=== PATIENT | female | born 1945 | race Caucasian/White ===

== ENCOUNTER → 2017-07-27 | Outpatient (CLI) | payer OTHER ==
[~2017-07-27] MED LIST: ASPIR 8181 MG PO; CALCIUM 600 +1 EAC1 PO; FISH OIL 1,001000 M2 PO; GLUCOSAMINE CH1 EA10 PO; MAXZIDE-25 MG1 EACH PO; NORCO 5-325 TA1 EACH PO; PERCOCET PO; TYLENOL EXTRA500 MG PO; UNICOMPLEX M TA1 TA1 PO; XARELTO10 MG PO; ZOCOR20 MG PO
== END ==
LOC: M.MRI 10:55
DX: S83.281A Other tear of lateral meniscus, current injury, right knee, initial encounter (principal); S83.241A Other tear of medial meniscus, current injury, right knee, initial encounter; M17.11 Unilateral primary osteoarthritis, right knee; M25.461 Effusion, right knee; M22.41 Chondromalacia patellae, right knee; Z96.651 Presence of right artificial knee joint; X58.XXXA Exposure to other specified factors, initial encounter; Y93.89 Activity, other specified; Y92.89 Other specified places as the place of occurrence of the external cause; Y99.8 Other external cause status

== ENCOUNTER 2017-08-17 06:15 | Inpatient (IN) | payer OTHER ==
[2017-08-05 09:02] LABS: HEMATOCRIT 35.1 % (37.0-47.0); HEMOGLOBIN 11.6 gm/dL (12.0-15.0); MCH 27.1 pg (26.0-34.0); MCHC 33.2 g/dL (28.0-37.0); MCV 81.8 fL (80.0-100.0); MPV 7.8 fl. (7.2-11.1); RBC 4.29 mil/uL (4.20-5.00); RDW-CV 16.8 % (10.5-14.5); WBC 6.3 thou/uL (4.0-11.0)
[2017-08-05 09:26] LABS: URINE BILIRUBIN NEGATIVE (Negative); URINE BLOOD NEGATIVE (Negative); URINE CLARITY CLEAR; URINE COLOR YELLOW; URINE GLUCOSE-RANDOM NEGATIVE (Negative); URINE KETONES NEGATIVE (Negative); URINE LEUKOCYTES-REFLEX NEGATIVE (Negative); URINE NITRITE-REFLEX NEGATIVE (Negative); URINE PROTEIN NEGATIVE (Negative); URINE SPECIFIC GRAVITY <= 1.005 (1.005-1.030); URINE UROBILINOGEN 0.2 E.U./dl (0.2-1.0)
[2017-08-05 09:36] LABS: ALBUMIN 3.8 g/dL (3.4-5.0); CALCIUM 9.4 mg/dL (8.5-10.1); CREATININE 0.9 mg/dL (0.6-1.3); POTASSIUM 3.8 mmol/L (3.5-5.1); TOTAL BILIRUBIN 0.4 mg/dL (<0.1-1.0)
[2017-08-05 09:37] LABS: PROTIME 9.8 Seconds (9.20-11.50)
--- NOTE | 2017-08-05 17:17 | EKG ---
[place] [address] ELECTROCARDIOGRAM REPORT Name: IGGY TALLEY Room: PRE IN [facility]#: [id number] Admission: Attend Phys: Skip Rosario Discharge: Date of : 49 Report #: [id number] THIS REPORT FOR: //name// [facility] Test Date: 2017-08-05 Test Time: 09:08:50 Pat Name: IGGY TALLEY Department: Room: Gender: [place] Wellness Coordinator: : 1945 Requested By: Uvaldo Villalta Order Number: [id number] Reading MD: Juan Diego Whitaker Measurements Intervals Jones Rate: 71 P: 45 ID: [id number] QRS: -6 QRSD: 85 T: 50 QT: 401 QTc: 436 Interpretive Statements Sinus rhythm No previous ECG available for comparison Electronically Signed On 08-05-2017 17:17:32 TOLL LINE INSPECTOR by Juan Diego Whitaker [email or web address] <ELECTRONICALLY SIGNED> By: Juan Diego Whitaker MD, [facility] 08/05/17 1717 0908 [id number] Juan Diego Whitaker MD, FACC /EPI
[~2017-08-17] VITALS: Ht 167.6 cm; Wt 76.2 kg
[~2017-08-17 06:15] MED LIST changes: -NORCO 5-325 TA1 EACH PO; -PERCOCET PO; -XARELTO10 MG PO
[2017-08-17 08:45] VITALS: BP 124/70
--- NOTE | 2017-08-17 12:59 | NUR ---
RECIEVED O.T. EVAL AND TX ORDERS. WILL DEFER TO P.T. AND NURSING. PLEASE ORDER FURTHER O.T. SERVICES IF NEEDED.
[2017-08-17 13:00] VITALS: BP 129/58
--- NOTE | 2017-08-17 14:56 | NUR ---
PATIENT CAME TO THE FLOOR FROM THE OR IN STABLE CONDITION. VITAL SIGNS STABLE ON 2 LITERS OF OXYGEN THROUGH NASAL CANNULA, CONTINOUS PULSE OXIMETER IN PLACE, PATIENT'S OXYGEN LEVEL IN 100%. ADMISSION EDUCATION DONE AND QUESTIONS ANSWERED FOR PATIENT AND FAMILY. CALL LIGHT IS IN REACH, PATIENT IS SLEEPING NOW.
[2017-08-17 16:00] VITALS: BP 112/61
--- NOTE | 2017-08-17 17:33 | NUR ---
PATIENT HAS BEEN ALERT AND ORIENTED SINCE ARRIVING FROM THE OR HAVING RIGHT KNEE REPLACEMENT. SOME COMPLAINTS OF PAIN THAT IS SOMEWHAT CONTROLLED WITH IV PAIN MEDICATIONS. VITAL SIGNS STABLE ON 3 LITERS OF OXYGEN THROUGH NASAL CANNULA WITH CONTINOS PULSE OXIMETER. CALL LIGHT IS IN REACH, WILL CONTINUE TO MONITOR.
[2017-08-17 20:00] VITALS: BP 129/80
[2017-08-18] VITALS (9 sets, daily range): BP systolic 122–140; BP diastolic 54–80
[2017-08-18 04:20] LABS: HEMATOCRIT 30.3 % (37.0-47.0); HEMOGLOBIN 10.1 gm/dL (12.0-15.0)
--- NOTE | 2017-08-18 05:16 | NUR ---
ASSUMED CARE OF PT AT 1900 PT ALERT AND ORIENTED X4 VS AND ASSESSMENT STABLE POSITIVE CMS CHECKS TO RLE. PT HAD PAIN MEDS TWICE THEN SLEPT THROUGH THE NIGHT.
--- NOTE | 2017-08-18 15:08 | NUR ---
SPOKE WITH PT.EARLIER. AT BEDSIDE. HE WILL BE WITH HER 11/01 AT HOME. SHE HAS A WALKER AT BEDSIDE FROM HOME. SHE IS NORMALLY INDEPENDENT AT HOME. CM CALLED PRESCRIPTION FOR XARELTO WRITTEN TO [facility]. COPAY IS $18. WILL INFORM PT. DISCUSSED HH AGENCIES. SHE CHOSE [facility] SHE HAD USED THEM BEFORE. WILL MAKE REFERRAL TO [facility].
--- NOTE | 2017-08-18 17:26 | NUR ---
ASSUMED CARE O FPATIENT AFTER MORNING REPORT. ALERT AND ORIENTED X4. ASSESSMENT COMPLETED AND CHARTED. VSS ON ROOM AIR. PATIENT HAS HAD NO COMPLAINTS OF NAUSEA THIS SHIFT. PAIN HAS BEEN MINIMAL AND MANAGED WITH MEDICATION. PATIENT HAS WORKED WELL WITH THERAPY TODAY AND MAY DISCHARGE TOMORROW. HOURLY ROUNDS HAVE BEEN MAINTAINED. CALL LIGHT IS WITHIN REACH. NURSING WILL CONTINUE TO MONITOR.
[2017-08-18] MEDS ORDERED: NORCO 5-325 TA1 EACH PO (17:52)
[2017-08-18] MEDS ORDERED: PERCOCET PO (17:53)
[2017-08-18] MEDS ORDERED: XARELTO10 MG PO (17:54)
[2017-08-19 00:34] VITALS: BP 120/53
[2017-08-19 05:49] VITALS: BP 133/60
[2017-08-19 06:29] LABS: HEMOGLOBIN 10.4 gm/dL (12.0-15.0)
--- NOTE | 2017-08-19 07:44 | NUR ---
Alert and orinted x 4. Up with assist x 1 and walker. She has had pain meds x 3. She had milk of mag given at HS and lots of gas. CPM x 1 0-83 degrees x 1 & 1/2 hours. Vitals stable. NO nausea. She has slept well.
[2017-08-19 08:09] VITALS: BP 115/67
[2017-08-19 08:41] VITALS: BP 115/67
--- NOTE | 2017-08-19 10:43 | NUR ---
PT.TO BE DISCHARGED TODAY WITH HOME HEALTH. [facility] HAD ACCEPTED HER TO SERVICE. FAXED DISCHARGE ORDERS FOR P.T. AND FACE TO FACE FORM TO [facility]. PT.INFORMED OF COPAY COST OF XARELTO.
--- NOTE | 2017-08-19 11:06 | NUR ---
ASSUMED CARE OF PATIENT AFTER MORNING REPORT. ALERT AND ORIENTED X4. VSS ON ROOM AIR. PATIENT HAD NO COMPLAINTS OF NAUSEA. PAIN WAS MANAGED WITH PAIN MEDICATIN. PATIENT WORKED WELL WITH THERAPY AND WAS DISCHARGED HOME WITH HOME HEALTH FOR THERAPY. ALL PERSONAL BELONGINGS SENT WITH PATIENT, PRESCRIPTIONS AND DISCHARGE INSTRUCTIONS SENT WITH PATIENT UPON DISCHARGE AT 1055.
--- NOTE | 2017-08-19 11:07 | S ---
[place] [address] SURGICAL PATH RPT PROCEDURE Name: ARY TALLEY Room: [address] IN [facility].#: [id number] Admission: 08/17/17 Date of : 49 Discharge: Report #: [id number] Path Case #: [id number] PATHOLOGY REPORT COLLECTION DATE: 08/17/2017 RECEIVED DATE: 08/17/2017 SUBMITTING PHYS: Dr. Uvaldo Villalta II OTHER PHYS: Dr. Miguelito Cortez SPECIMEN(S) RECEIVED: A.Right knee bone and tissue * * * * * * * * * * * * FINAL DIAGNOSIS: Right knee bone and tissue, total knee replacement: - Benign synovium, meniscus and dense fibrous connective tissue and benign bone and cartilage with severe degenerative changes. (VLADIMIR:néstor; 08/19/2017) PATHOLOGIST: Clayton Lopez M.D. REPORT ELECTRONICALLY SIGNED BY: Clayton Lopez M.D. DATE/TIME: 08/19/2017 11:07 * * * * * * * * * * * * GROSS PATHOLOGY: Received in formalin labeled "Ary Talley, right knee bone and tissue," are multiple segments of bone, including tibial plateau, measuring 13.3 x 12.7 x 2.4 cm in aggregate dimensions admixed with soft tissue; meniscus is present. The specimen shows possible eburnation of the articular surfaces. Client Technical Specialist sections of bone and soft tissue are submitted in cassette A1, following decalcification. (DAC; 08/18/2017) CLINICAL HISTORY: Right knee degenerative joint disease INITIAL CPT CODE(S): A; 25961, 96175 Professional services performed by [facility] at [facility], [address] [place], [place] [address], [place] [address]. Technical services performed by [facility] at [address] [place] [address], [facility] [address], [place] [address]. [place] [address] SURGICAL PATH RPT PROCEDURE Name: ARY TALLEY Room: [address] IN [facility]#: [id number] Admission: 08/17/17 Date of : 49 Discharge: Report #: [id number] Path Case #: [id number] [facility] [address] [address] PHONE: [phone] DIRECTOR: Sharath Gentile M.D. * * * END OF REPORT * * *
--- NOTE | 2017-08-24 10:40 | OP ---
[facility] [address] [place] [address] OPERATIVE REPORT Name: IGGY TALLEY Room: [address]#: [id number] Admission: 08/17/17 Attend Phys: Skip Rosario Discharge: 08/19/17 Date of : 49 Report #: [id number] THIS REPORT FOR: //name// CC: Daphne Cortez DATE OF SERVICE: 08/17/2017 PREOPERATIVE DIAGNOSIS: Right knee osteoarthritis. POSTOPERATIVE DIAGNOSIS: Right knee osteoarthritis. PROCEDURE: Right total knee arthroplasty. SURGEON: Uvaldo Villlata II, DO. HOUSEKEEPER CAREGIVER: ROSIE Moura. ANESTHESIA: General endotracheal. ESTIMATED BLOOD LOSS: 50 mL. ANTIBIOTICS: Ancef preoperatively. DRAINS: Medium Hemovac. COMPLICATIONS: None. CONDITION: The patient to stable to recovery room. IMPLANTS: Listed in the operative record and progress note. BRIEF HISTORY: The patient is seen in preoperative area. Preop H and P was performed. The patient's site was marked, questions were answered. Risks and benefits were discussed with the patient in detail about surgery. The patient wished to proceed and assumed all risks. DESCRIPTION OF PROCEDURE: The patient was taken to the operative suite, placed supine on the operating table and given appropriate anesthesia. A well-padded tourniquet was applied to the upper thigh, was inflated to 300 mmHg after gravity exsanguination. The operative knee was sterilely prepped and draped. Surgery began by midline incision, carried down to subcutaneous tissues. A medial parapatellar arthrotomy was performed and carried down to bone. Patella was inverted and excess soft tissue removed from around the femur. Femoral cutting block was then applied, checked with drop jahaira for rotational alignment [address] [address] OPERATIVE REPORT Name: IGGY TALLEY Room: [address]#: [id number] Admission: 08/17/17 Attend Phys: Skip Rosario Discharge: 08/19/17 Date of : 49 Report #: [id number] and appropriate position and appropriate cuts were made. A 4-in-1 cutting block was then applied to check rotational alignment, pinned into appropriate position and appropriate cuts were made. The tibia was then exposed. The excess meniscus was removed. Retractors were then placed on the collateral ligaments. The tibial cutting block was then applied, pinned in appropriate position, checked with drop jahaira for rotational alignment and slope and appropriate cut was made. Tibia bone was removed. The tibial base plate was then applied, checked for rotational alignment with the drop jahaira and pinned into appropriate position. The femur was applied and box cut was reamed. This was then trialed with the appropriate spacer, which showed excellent fit and fill and excellent stability of the knee throughout all range of motion. The patella was then reamed in appropriate fashion and sized to appropriate size. Three peg holes were drilled and it was then trialed and showed excellent flexion and extension with excellent tracking of the patella from the groove. These trials were then removed. The tibia was punched in appropriate fashion. Bone ends were cleansed with Pulsavac irrigation and cement was mixed and applied to the final implants. These were malleted in position and held the knee in extension and compressed to allow cement to cure. After cured, excess was removed using [place] and osteotome. The wound was then copiously irrigated and the final spacer was malleted into position. The tourniquet was deflated. Hemostasis was maintained with electrocautery. Pain cocktail was injected. PRP gel was sprayed throughout the internal aspect of the knee and medium Hemovac drain was then applied. The capsule was closed with 2 FiberWire and 1 Vicryl in [id number] fashion. Skin was closed with 2-0 Vicryl and running 3-0 Monocryl. Dermabond and sterile dressing was then applied. Jayme wrap and PolarCare applied. The patient transported to recovery room in stable condition. Counts were correct throughout the procedure. <ELECTRONICALLY SIGNED> By: Uvaldo Villalta II, DO 08/24/17 1040 0844 [id number] Villalta II, DO /nt
== END 2017-08-19 10:55 | disposition home health service (06) | DRG 470 ==
LOC: M.PRE → M.ORTHSURG 08:27 → M.TBA 08:27 → M.PRE 09:47 → M.ORTHSURG 13:35 → M.PRE 13:55 → M.ORTHSURG 08-19 10:55
PROVIDERS: Orthopaedic Surgery; ADMIT Internal Medicine
PROC: 0SRC0J9 Replacement of Right Knee Joint with Synthetic Substitute, Cemented, Open Approach (ICD-10-PCS; principal; 2017-08-17)
PROC: 3E0T3BZ Introduction of Anesthetic Agent into Peripheral Nerves and Plexi, Percutaneous Approach (ICD-10-PCS; 2017-08-17)
DX: M17.11 Unilateral primary osteoarthritis, right knee (principal); D62 Acute posthemorrhagic anemia; G89.29 Other chronic pain; E78.5 Hyperlipidemia, unspecified; I10 Essential (primary) hypertension; Z90.710 Acquired absence of both cervix and uterus; Z90.49 Acquired absence of other specified parts of digestive tract

== ENCOUNTER → 2018-04-27 | Outpatient (CLI) | payer OTHER ==
[~2018-04-27] MED LIST changes: +NORCO 5-325 TA1 EACH PO; +PERCOCET PO; +XARELTO10 MG PO
== END ==
LOC: M.LAB 09:28
DX: Z01.812 Encounter for preprocedural laboratory examination (principal)